=== PATIENT | female | born 1995 | race African-American/Black ===

== ENCOUNTER 2021-09-17 00:02 | Emergency (ER) | payer OTHER, MEDICAID ==
[~2021-09-17] VITALS: Ht 160 cm; Wt 102.0 kg
[2021-09-17] MEDS ORDERED: IBUPROFEN 600MG TABLET PO ONE (01:00)
[2021-09-17] MEDS ORDERED: TOPUD MT (02:37)
[2021-09-17 02:49] VITALS: BP 118/66
== END 2021-09-17 02:50 | disposition home or self-care (01) ==
LOC: ER 00:02
DX: M25.562 Pain in left knee (principal); W22.03XA Walked into furniture, initial encounter; Y93.89 Activity, other specified; Y92.011 Dining room of single-family (private) house as the place of occurrence of the external cause
CPT/HCPCS: 73562; 81025; 99283

== ENCOUNTER 2022-08-15 14:05 | Inpatient (IN) | payer OTHER ==
[~2022-08-15] VITALS: Ht 160 cm; Wt 115.2 kg
[~2022-08-15 14:05] MED LIST: TOPUD MT
[2022-08-15] MEDS ORDERED: NALOXONE HCL 0.4 MG/ML 1ML VIAL IM PRN (15:00)
[2022-08-15] MEDS ORDERED: LIDOCAINE HCL 1% 10 MG/ML 10ML VIAL IJ SCH (15:00)
[2022-08-15] MEDS ORDERED: METHYLERGONOVINE MALEATE 0.2 MG/ML IM PRN ×2 (15:00→19:45)
[2022-08-15] MEDS ORDERED: LACTATED RINGERS 1,000 ML IV SCH (15:00)
[2022-08-15] MEDS ORDERED: AMPICILLIN 2GM in NS 100ML 100 ML IV SCH (15:00)
[2022-08-15] MEDS: BUTORPHANOL TARTRATE 2 MG/ML VIAL IV PRN ×2 (15:37→18:04)
[2022-08-15 15:46] LABS: CLARITY URINE CLEAR (CLEAR); COLOR URINE YELLOW (YELLOW); KETONES URINE TRACE (NEGATIVE); LEUKOCYTE ESTERASE URINE 2+ (NEGATIVE); NITRITE URINE NEGATIVE (NEGATIVE); OCCULT BLOOD URINE TRACE (NEGATIVE); PROTEIN URINE 1+ (NEGATIVE); SPECIFIC GRAVITY URINE 1.028 (1.005-1.030); UROBILINOGEN URINE 0.2 E.U./dL (0.2-1.0)
[2022-08-15 15:58] LABS: *AMPHETAMINES SCREEN URINE NEGATIVE (NEGATIVE); *BARBITURATES SCREEN URINE NEGATIVE (NEGATIVE); *BENZODIAZEPINES SCREEN URINE NEGATIVE (NEGATIVE); *COCAINE SCREEN URINE NEGATIVE (NEGATIVE); METHADONE URINE SCREEN NEGATIVE (NEGATIVE); OPIATES URINE SCREEN NEGATIVE (NEGATIVE); PHENCYCLIDINE URINE SCREEN NEGATIVE (NEGATIVE)
[2022-08-15 16:00] LABS: BASOPHILS % 0.3 % (0.0-2.0); EOSINOPHILS % 0.1 % (0.0-5.0); HEMATOCRIT. 40.7 % (36.0-48.0); HEMOGLOBIN. 13.6 g/dL (12.0-16.0); LYMPHOCYTES % 7.9 % (20.0-50.0); MEAN CORPUSCULAR HEMOGLOBIN 27.9 pg (28.0-32.0); MEAN CORPUSCULAR VOLUME 83.5 fL (81.0-99.0); MEAN PLATELET VOLUME 9.1 fl (7.4-10.4); MONOCYTES % 4.2 % (2.0-8.0); NEUTROPHILS % 87.5 % (40.0-76.0); PLATELET 270 x1000/uL (130-400); RED BLOOD CELL COUNT 4.87 mill/uL (4.2-5.4); RED CELL DISTRIBUTION WIDTH 14.4 % (11.6-14.6)
[2022-08-15 16:01] LABS: CANNABINOID URINE SCREEN PRESUMTIVE POSITIVE (NEGATIVE)
[2022-08-15 16:13] LABS: PARTIAL THROMBOPLASTIN TIME 30.1 sec (23.4-31.0); PROTHROMBIN TIME 10.8 sec (9.6-11.0)
[2022-08-15 16:29] LABS: HEPATITIS B SURFACE ANTIGEN NEGATIVE
[2022-08-15] MEDS ORDERED: ROPIVACAINE HCL/PF EPIDURAL 200 ML EPI SCH (17:15)
[2022-08-15] MEDS: OXYTOCIN 30 UNITS/500ML NS PMX 500 ML IV SCH ×2 (19:15→21:48)
[2022-08-15] MEDS ORDERED: NALOXONE HCL 0.4MG/ML VIAL IV PRN (19:45)
[2022-08-15] MEDS ORDERED: OXYTOCIN 30 UNITS/500ML NS PMX 500 ML IV SCH (19:45)
[2022-08-15] MEDS ORDERED: IBUPROFEN 400MG TABLET PO PRN (19:45)
[2022-08-15] MEDS ORDERED: ACETAMINOPHEN WITH CODEINE 300/30MG TABLET PO PRN (19:45)
[2022-08-15] MEDS ORDERED: BENZOCAINE/LANOLIN/ALOE VERA SPRAY TOP PRN (19:45)
[2022-08-15] MEDS ORDERED: DIPHENHYDRAMINE 25MG CAPSULE PO PRN (19:45)
[2022-08-15] MEDS ORDERED: LANOLIN OINT 7GM TUBE TOP PRN (19:45)
[2022-08-15] MEDS ORDERED: GLYCERIN/WITCH HAZEL LEAF MEDICATED PAD TOP PRN (19:45)
[2022-08-15] MEDS ORDERED: HEMORRHOIDAL SUPP PR PRN (19:45)
[2022-08-15] MEDS ORDERED: BISACODYL 10MG SUPP PR PRN (19:45)
[2022-08-15 21:00] VITALS: BP 134/72
[2022-08-15] MEDS ORDERED: AMPICILLIN 1,000 MG in SODIUM CHLORIDE 0.9% 50 ML IV SCH (21:00)
[2022-08-15] MEDS: IBUPROFEN 800MG TABLET PO PRN (21:47)
[2022-08-15] MEDS: DOCUSATE SODIUM 100MG CAPSULE PO SCH (21:47)
[2022-08-15 22:00] VITALS: BP 135/75
[2022-08-16] VITALS: BP 136/72
[2022-08-16] MEDS ORDERED: ACETAMINOPHEN 325MG TABLET PO PRN (02:00)
[2022-08-16 04:00] VITALS: BP 111/55
[2022-08-16] MEDS: IBUPROFEN 800MG TABLET PO PRN (05:17)
[2022-08-16] MEDS ORDERED: FERROUS SULFATE 325MG TABLET PO SCH (07:30)
[2022-08-16 07:48] LABS: BASOPHILS % 0.3 % (0.0-2.0); EOSINOPHILS % 0.3 % (0.0-5.0); HEMATOCRIT. 35.6 % (36.0-48.0); HEMOGLOBIN. 11.9 g/dL (12.0-16.0); MEAN CORPUSCULAR VOLUME 83.9 fL (81.0-99.0); MONOCYTES % 5.4 % (2.0-8.0); PLATELET 232 x1000/uL (130-400); RED BLOOD CELL COUNT 4.24 mill/uL (4.2-5.4); RED CELL DISTRIBUTION WIDTH 14.5 % (11.6-14.6)
[2022-08-16 08:00] VITALS: BP 138/74
[2022-08-16] MEDS ORDERED: PRENATAL VIT/FE FUMARATE/FA TABLET PO SCH (09:00)
[2022-08-16 16:00] VITALS: BP 131/72
[2022-08-16 20:00] VITALS: BP 126/76
[2022-08-16] MEDS: DOCUSATE SODIUM 100MG CAPSULE PO SCH (21:00)
[2022-08-17] MEDS: IBUPROFEN 800MG TABLET PO PRN (03:57)
[2022-08-17 04:09] VITALS: BP 121/60
[2022-08-17] MEDS ORDERED: IBUP-2030 PO (05:52)
[2022-08-22 17:06] LABS: CANNABINOID CONFIRMATION URINE Positive (.)
== END 2022-08-17 13:05 | disposition home or self-care (01) | DRG 560 ==
LOC: 8 EST LDRP 14:05 → OBSVTOIN 14:05 → 8EST 21:29
PROVIDERS: ADMIT Specialist; ATTEND Specialist
PROC: 10E0XZZ Delivery of Products of Conception, External Approach (ICD-10-PCS; principal; 2022-08-15)
DX: O99.214 Obesity complicating childbirth (principal); Z37.0 Single live birth; F12.10 Cannabis abuse, uncomplicated; O99.324 Drug use complicating childbirth; Z3A.39 39 weeks gestation of pregnancy; Z20.822 Contact with and (suspected) exposure to COVID-19
CPT/HCPCS: 36415; 80305; 80349; 81003; 85025; 86592; 86703; 86762; 86850; 86900; 87340; 87426; 99281; J0290; J0595; J7120; J2590